=== PATIENT | female | born 1955 | race Caucasian/White ===

== ENCOUNTER 2018-06-19 04:04 | Inpatient (IN) | payer MEDICARE, OTHER ==
[~2018-06-19] VITALS: Ht 154.9 cm; Wt 133.4 kg
[~2018-06-19 04:04] MED LIST: AMLO10 PO; AMOCLA875 PO; ASPI81CH PO; ATOR10 PO; BUDE6HFA INH; DULO30 PO; FURO40 PO; HYDR1TAB94 PO; ISODIN20 PO; LOSA25 PO; METO25ER PO; ONDA4 PO; POTCHL10ER PO; TRAZ150T57; TUDORZA PRESS400 MCG IH; Ventolin Soln3 ML INH
[2018-06-19] MEDS ORDERED: DOXY100T53 PO (04:27)
[2018-06-19] MEDS ORDERED: MELO7.5 PO (04:28)
[2018-06-19 04:39] LABS: BASOPHILS ABSOLUTE AUTO 0.09 K/mm3 (0.00-0.23); BASOPHILS PERCENT AUTO 1 % (0-2); EOSINOPHILS ABSOLUTE AUTO 0.92 K/mm3 (0.00-0.68); EOSINOPHILS PERCENT AUTO 11 % (0-6); Hematocrit 41.6 % (33.0-51.0); Hemoglobin 13.3 g/dL (11.5-16.0); IMMATURE GRAN ABSOLUTE AUTO 0.04 K/mm3 (0.00-0.10); IMMATURE GRAN PERCENT AUTO 1 % (0-1); LYMPHOCYTES ABSOLUTE AUTO 1.92 K/mm3 (0.84-5.20); LYMPHOCYTES PERCENT AUTO 23 % (21-46); MONOCYTES ABSOLUTE AUTO 0.83 K/mm3 (0.16-1.47); MONOCYTES PERCENT AUTO 10 % (4-13); Mean Corpuscular HGB 29.9 pg (26.0-34.0); Mean Corpuscular Volume 94 fL (80-100); Mean Platelet Volume 9.8 fL (9.1-12.4); NEUTROPHILS ABSOLUTE AUTO 4.74 K/mm3 (1.96-9.15); NEUTROPHILS PERCENT AUTO 55 % (41-73); Platelet Count 256 K/mm3 (150-400); RDW Coefficient Variation 13.8 % (11.7-14.2); RDW Standard Deviation 47.4 fL (35.1-46.3); Red Blood Cell Count 4.45 M/mm3 (3.80-5.20); White Blood Cell Count 8.54 K/mm3 (4.00-11.30)
[2018-06-19 04:52] LABS: Alanine Aminotransfer (ALT/SGP 26 U/L (12-78); Albumin, Blood 3.7 g/dL (3.4-5.0); Albumin/Globulin Ratio 1.1 (0.8-1.8); Alk Phos 100 U/L (50-136); Anion Gap 7 mmol/L (6-16); Aspartate Aminotrans (AST/SGOT 32 U/L (12-37); Bilirubin, Total 0.6 mg/dL (0.1-1.0); Blood Urea Nitrogen 12 mg/dL (8-24); Bun/Creatinine Ratio 18.2 (12.0-20.0); CO2, Blood 26 mmol/L (21-32); Calcium, Blood 8.5 mg/dL (8.5-10.1); Chloride, Blood 108 mmol/L (98-108); Creatinine, Blood 0.66 mg/dL (0.40-1.00); Globulin, Blood 3.4 g/dL (2.2-4.0); Glomerular Filtration Rate >60 (60-); Glucose, Blood 114 mg/dL (70-99); Potassium, Blood 3.9 mmol/L (3.5-5.5); Sodium, Blood 141 mmol/L (136-145); Total Protein, Blood 7.1 g/dL (6.4-8.2); Troponin I <0.015 ng/mL (0.000-0.040)
--- NOTE | 2018-06-19 08:00 | NUR ---
ADMISSION SUMMARY RECEIVED PT FROM ER INTO ICU 15. PT ABLE TO AMBULATE FROM [facility] TO THE BED. DYSPNEIC ON EXERTION, SATS REMAINING 97-99% ON ROOM AIR. AUDIBLE WHEEZES THROUGHOUT ALL LUNG WALL. PLACED ON 2L O2 NC TO ASSIST WITH WORK OF BREATHING. RESPIRATORY THERAPY AT BEDSIDE TO PROVIDE A BREATHING TREATMENT AND INHALERS. SR - ST ON MONITOR, HR 90'S - 117, INCREASES WITH EXERTION AND DYSPNEA. COLLECTED PRESPIRATORY PANEL PCR AND SENT TO LAB. INSTRUCTED PT TO PROVIDE A SPUTUM SAMPLE AND PROVIDED CONTAINER AND EDUCATION. VOIDS PER BEDSIDE COMMODE. FREQUENT VOIDS WITH LARGE AMOUNTS OF URINE, RECEIVED DOSE OF LASIX. CALLS APPROPRIATELY FOR ASSISTANCE OOB. ORDERED A REGULAR DIET BUT PT NOT FEELING HUNGRY FOR BOTH BREAKFAST AND LUNCH. OBESE, DENIES GI UPSET. SKIN INTACT. LEFT AC SALINE LOCK, GAVE LEVAQUIN.
[2018-06-19] MEDS ORDERED: ALBU3IS INH (08:55)
[2018-06-19] MEDS ORDERED: DICLOFENAC SOD100 G1 TOP (09:02)
[2018-06-19 10:32] LABS: Adenovirus Not Detected (NOT DETECT); Bordetella pertussis Not Detected (NOT DETECT); Chlamydophila pneumoniae Not Detected (NOT DETECT); Coronavirus 229E Not Detected (NOT DETECT); Coronavirus HKU1 Not Detected (NOT DETECT); Coronavirus NL63 Not Detected (NOT DETECT); Coronavirus OC43 Not Detected (NOT DETECT); Human Metapneumovirus Not Detected (NOT DETECT); Human Rhinovirus/Enterovirus Detected (NOT DETECT); Influenza A Not Detected (NOT DETECT); Influenza A/2009-H1 Not Detected (NOT DETECT); Influenza A/H1 Not Detected (NOT DETECT); Influenza A/H3 Not Detected (NOT DETECT); Influenza B Not Detected (NOT DETECT); Mycoplasma pneumoniae Not Detected (NOT DETECT); Parainfluenza Virus 1 Not Detected (NOT DETECT); Parainfluenza Virus 2 Not Detected (NOT DETECT); Parainfluenza Virus 3 Not Detected (NOT DETECT); Parainfluenza Virus 4 Not Detected (NOT DETECT); Respiratory Syncytial Virus Not Detected (NOT DETECT)
--- NOTE | 2018-06-19 12:15 | NUR ---
DR. BEE AT BEDSIDE FOR EVALUATION. NEW ORDERS PROVIDED.
--- NOTE | 2018-06-19 18:26 | NUR ---
NURSING SUMMARY - MEDICAL NON-TEL STATUS ALERT AND ORIENTED X 4. SR - ST ON MONITOR, HR 80'S - 117, INCREASES WITH EXERTION AND DYSPNEA. LUNGS WITH WHEEZES THROUGHOUT, DRY NON-PRODUCTIVE COUGH, 2L O2 NC, SATS 96-100%. VOIDS PER BEDSIDE COMMODE, LARGE AMOUNTS OF URINE TODAY, GAVE LASIX. NO BM. TOLERATING A REGUALR DIET, DENIES N/V/D. CALLS APPROPRIATELY FOR ASSISTANCE. REPOSITIONS SELF IN BED. LEFT AC SALINE LOCK.
--- NOTE | 2018-06-19 19:15 | NUR ---
[place] of Care: Patient alert and oriented x4, sitting upright in bed watching tv. Denies dyspnea or SOB, VSS, O2- 95-96% on 2L/NC. C/o headache pain, 06/29, prn tylenol given. Independent in room transfers self to bedside commode without difficulty, non-skid footwear in place. Peripheral IV to LAC patent and intact, saline locked at this time. Call light in reach, makes needs known. Will continue to monitor for pain, safety, comfort.
[2018-06-20 03:36] LABS: Mean Corpuscular HGB 29.8 pg (26.0-34.0); Mean Corpuscular HGB Conc 32.5 g/dL (31.5-36.5); Mean Corpuscular Volume 92 fL (80-100); Mean Platelet Volume 9.8 fL (9.1-12.4); Platelet Count 257 K/mm3 (150-400); RDW Coefficient Variation 13.7 % (11.7-14.2); RDW Standard Deviation 46.7 fL (35.1-46.3); Red Blood Cell Count 4.36 M/mm3 (3.80-5.20); White Blood Cell Count 9.05 K/mm3 (4.00-11.30)
[2018-06-20 04:00] LABS: Alanine Aminotransfer (ALT/SGP 22 U/L (12-78); Albumin, Blood 3.3 g/dL (3.4-5.0); Alk Phos 90 U/L (50-136); Anion Gap 8 mmol/L (6-16); Aspartate Aminotrans (AST/SGOT 9 U/L (12-37); Bilirubin, Total 0.6 mg/dL (0.1-1.0); Blood Urea Nitrogen 14 mg/dL (8-24); Bun/Creatinine Ratio 21.7 (12.0-20.0); CO2, Blood 26 mmol/L (21-32); Calcium, Blood 8.5 mg/dL (8.5-10.1); Chloride, Blood 107 mmol/L (98-108); Creatinine, Blood 0.64 mg/dL (0.40-1.00); Globulin, Blood 3.3 g/dL (2.2-4.0); Glomerular Filtration Rate >60 (60-); Glucose, Blood 165 mg/dL (70-99); Potassium, Blood 3.5 mmol/L (3.5-5.5); Sodium, Blood 141 mmol/L (136-145); Total Protein, Blood 6.6 g/dL (6.4-8.2)
--- NOTE | 2018-06-20 06:08 | NUR ---
Shift Summary: Patient slept well throughout shift. Placed on home CPAP while sleeping. 2L O2 bleed-in added approx 0100hr as O2% decreased to 85-88%, VSS otherwise stable throughout shift. Continues to deny dyspnea or SOB. No further C/o pain following prn tylenol given early in shift for c/o headache. Peripheral IV remains patent and intact. Call light in reach, makes needs known. Will continue to monitor until report to day shift RN.
--- NOTE | 2018-06-20 07:20 | NUR ---
RECEIVED REPORT FROM PAT ARNETT, AND ASSUMED CARE OF PT.
--- NOTE | 2018-06-20 10:30 | NUR ---
DR. GILL AT BEDSIDE FOR EVALUATION. STATED HE WAS GOING TO DISCHARGE PT TODAY.
[2018-06-20] MEDS ORDERED: LEVO750 PO (14:50)
[2018-06-20] MEDS ORDERED: ACET325 PO (14:50)
[2018-06-20] MEDS ORDERED: ONDA4ODT MM (14:51)
[2018-06-20] MEDS ORDERED: PRED20 PO (14:51)
--- NOTE | 2018-06-20 15:09 | NUR ---
PROVIDED PT AND WITH DISCHARGE INSTRUCTIONS AND ANSWERED ALL QUESTIONS. FAXED PRESCRIPTIONS FOR [facility] ON [address] AND CONFIRMED FOLLOW-UP PCP APPOINTMENT WITH PT/ FOR 06/23/18 AT 10:00 WITH ANATOLY SHANE. REMOVED LEFT AC IV INTACT, TOLERATED WELL, NO BLEEDING AT THE SITE. PATIENT ESCORTED OUT VIA WHEELCHAIR BY YOVANI CALERO.
== END 2018-06-20 15:00 | disposition home or self-care (01) | DRG 193 ==
LOC: ER 04:04 → ICUW 05:56 → ERHOLD 05:56 → ICUW 07:49 → EDBEDREQ 07:54 → EDBEDREQSVC 07:54 → ICUW 08:00
PROVIDERS: Emergency Medicine; ADMIT Internal Medicine
PROC: 5A09357 Assistance with Respiratory Ventilation, Less than 24 Consecutive Hours, Continuous Positive Airway Pressure (ICD-10-PCS; principal; 2018-06-19)
DX: J12.9 Viral pneumonia, unspecified (principal); J96.21 Acute and chronic respiratory failure with hypoxia; J44.1 Chronic obstructive pulmonary disease with (acute) exacerbation; Z68.43 Body mass index [BMI] 50.0-59.9, adult; J44.0 Chronic obstructive pulmonary disease with (acute) lower respiratory infection; Z87.891 Personal history of nicotine dependence; I10 Essential (primary) hypertension; E66.01 Morbid (severe) obesity due to excess calories
CPT/HCPCS: 36415; 71045; 80053; 84484; 85025; 85027; 87486; 87581; 87633; 87798; 90686; 93005; 93010; 94640; 94644; 96361; 96374; 96375; 99285-25; J0696; J1650; J1940; J1956; J2930; J7030

== ENCOUNTER 2018-08-31 19:17 | Emergency (ER) | payer MEDICARE, OTHER ==
[~2018-08-31] VITALS: Ht 154.9 cm; Wt 136.1 kg
[~2018-08-31 19:17] MED LIST changes: +ACET325 PO; +ALBU3IS INH; +DICLOFENAC SOD100 G1 TOP; +DOXY100T53 PO; +LEVO750 PO; +MELO7.5 PO; +ONDA4ODT MM; +PRED20 PO
[2018-08-31 20:07] LABS: BASOPHILS PERCENT AUTO 1 % (0-2); EOSINOPHILS PERCENT AUTO 9 % (0-6); Hematocrit 41.8 % (33.0-51.0); Hemoglobin 13.7 g/dL (11.5-16.0); IMMATURE GRAN ABSOLUTE AUTO 0.05 K/mm3 (0.00-0.10); IMMATURE GRAN PERCENT AUTO 1 % (0-1); LYMPHOCYTES ABSOLUTE AUTO 2.15 K/mm3 (0.84-5.20); LYMPHOCYTES PERCENT AUTO 26 % (21-46); MONOCYTES ABSOLUTE AUTO 0.65 K/mm3 (0.16-1.47); MONOCYTES PERCENT AUTO 8 % (4-13); Mean Corpuscular HGB 29.1 pg (26.0-34.0); Mean Corpuscular HGB Conc 32.8 g/dL (31.5-36.5); Mean Corpuscular Volume 89 fL (80-100); Mean Platelet Volume 10.5 fL (9.1-12.4); NEUTROPHILS ABSOLUTE AUTO 4.52 K/mm3 (1.96-9.15); NEUTROPHILS PERCENT AUTO 55 % (41-73); Platelet Count 279 K/mm3 (150-400); RDW Coefficient Variation 13.9 % (11.7-14.2); RDW Standard Deviation 45.1 fL (35.1-46.3); White Blood Cell Count 8.17 K/mm3 (4.00-11.30)
[2018-08-31 21:17] LABS: Alanine Aminotransfer (ALT/SGP 31 U/L (12-78); Albumin, Blood 3.8 g/dL (3.4-5.0); Albumin/Globulin Ratio 1.1 (0.8-1.8); Alk Phos 95 U/L (50-136); Anion Gap 5 mmol/L (6-16); Aspartate Aminotrans (AST/SGOT 18 U/L (12-37); Bilirubin, Total 0.6 mg/dL (0.1-1.0); Blood Urea Nitrogen 7 mg/dL (8-24); Bun/Creatinine Ratio 9.4 (12.0-20.0); CO2, Blood 28 mmol/L (21-32); Calcium, Blood 8.9 mg/dL (8.5-10.1); Chloride, Blood 110 mmol/L (98-108); Creatinine, Blood 0.74 mg/dL (0.40-1.00); Globulin, Blood 3.5 g/dL (2.2-4.0); Glomerular Filtration Rate >60 (60-); Glucose, Blood 103 mg/dL (70-99); Potassium, Blood 3.8 mmol/L (3.5-5.5); Sodium, Blood 143 mmol/L (136-145); Total Protein, Blood 7.3 g/dL (6.4-8.2); Troponin I <0.015 ng/mL (0.000-0.040)
[2018-08-31] MEDS ORDERED: Prednisone50 MG PO (22:46)
[2018-08-31] MEDS ORDERED: Zithromax250 MG PO (22:46)
== END 2018-08-31 23:50 | disposition home or self-care (01) ==
LOC: ER 19:17
PROVIDERS: Emergency Medicine
DX: J44.1 Chronic obstructive pulmonary disease with (acute) exacerbation (principal); F41.9 Anxiety disorder, unspecified; I10 Essential (primary) hypertension; F32.9 Major depressive disorder, single episode, unspecified; Z87.891 Personal history of nicotine dependence; Z79.899 Other long term (current) drug therapy
CPT/HCPCS: 36415; 71046; 80053; 83880; 84484; 85025; 93005; 93010; 94640; 96374; 99284-25; J1100

== ENCOUNTER 2018-10-21 19:29 | Emergency (ER) | payer MEDICARE, OTHER ==
[~2018-10-21] VITALS: Ht 154.9 cm; Wt 136.1 kg
[~2018-10-21 19:29] MED LIST changes: +Prednisone50 MG PO; +Zithromax250 MG PO
== END 2018-10-21 20:24 | disposition home or self-care (01) ==
LOC: ER 19:29
DX: R09.89 Other specified symptoms and signs involving the circulatory and respiratory systems (principal); F41.0 Panic disorder [episodic paroxysmal anxiety]; Z88.5 Allergy status to narcotic agent; Z79.899 Other long term (current) drug therapy
CPT/HCPCS: 71046; 99283-25

== ENCOUNTER → 2018-12-19 | Outpatient (CLI) | payer MEDICARE, OTHER | END | disposition home or self-care (01) | LOC: LAB SHORT 11:42 → OLS 11:42 | DX: J44.9 Chronic obstructive pulmonary disease, unspecified (principal) | CPT/HCPCS: 87070; 87205 ==

== ENCOUNTER 2019-05-11 07:22 | Emergency (ER) | payer MEDICARE, OTHER ==
[~2019-05-11] VITALS: Ht 154.9 cm; Wt 136.1 kg
[2019-05-11 08:05] LABS: BASOPHILS ABSOLUTE AUTO 0.08 K/mm3 (0.00-0.23); BASOPHILS PERCENT AUTO 1 % (0-2); EOSINOPHILS PERCENT AUTO 8 % (0-6); Hematocrit 41.1 % (33.0-51.0); Hemoglobin 13.3 g/dL (11.5-16.0); IMMATURE GRAN ABSOLUTE AUTO 0.03 K/mm3 (0.00-0.10); IMMATURE GRAN PERCENT AUTO 0 % (0-1); LYMPHOCYTES ABSOLUTE AUTO 1.69 K/mm3 (0.84-5.20); LYMPHOCYTES PERCENT AUTO 16 % (21-46); MONOCYTES ABSOLUTE AUTO 0.75 K/mm3 (0.16-1.47); MONOCYTES PERCENT AUTO 7 % (4-13); Mean Corpuscular HGB Conc 32.4 g/dL (31.5-36.5); Mean Corpuscular Volume 90 fL (80-100); NEUTROPHILS ABSOLUTE AUTO 7.23 K/mm3 (1.96-9.15); NEUTROPHILS PERCENT AUTO 68 % (41-73); Platelet Count 239 K/mm3 (150-400); RDW Coefficient Variation 14.4 % (11.7-14.2); RDW Standard Deviation 47.1 fL (35.1-46.3); Red Blood Cell Count 4.58 M/mm3 (3.80-5.20); White Blood Cell Count 10.58 K/mm3 (4.00-11.30)
[2019-05-11 08:30] LABS: Influenza A Negative (NEGATIVE); Influenza B Negative (NEGATIVE)
[2019-05-11 08:52] LABS: Alanine Aminotransfer (ALT/SGP 21 U/L (12-78); Albumin, Blood 3.2 g/dL (3.4-5.0); Albumin/Globulin Ratio 0.9 (0.8-1.8); Alk Phos 101 U/L (50-136); Anion Gap 6 mmol/L (6-16); Aspartate Aminotrans (AST/SGOT 11 U/L (12-37); Bilirubin, Total 0.5 mg/dL (0.1-1.0); Blood Urea Nitrogen 12 mg/dL (8-24); Bun/Creatinine Ratio 17.1 (12.0-20.0); CO2, Blood 26 mmol/L (21-32); Calcium, Blood 8.3 mg/dL (8.5-10.1); Chloride, Blood 109 mmol/L (98-108); Globulin, Blood 3.6 g/dL (2.2-4.0); Glomerular Filtration Rate >60 (60-); Glucose, Blood 108 mg/dL (70-99); Sodium, Blood 141 mmol/L (136-145); Total Protein, Blood 6.8 g/dL (6.4-8.2); Troponin I <0.015 ng/mL (0.000-0.040)
[2019-05-11] MEDS ORDERED: Zithromax250 MG PO (09:18)
[2019-05-11] MEDS ORDERED: Prednisone20 MG PO (09:18)
== END 2019-05-11 09:47 | disposition home or self-care (01) ==
LOC: ER 07:22
PROVIDERS: Emergency Medicine
DX: J44.1 Chronic obstructive pulmonary disease with (acute) exacerbation (principal); F41.9 Anxiety disorder, unspecified; I10 Essential (primary) hypertension; Z87.891 Personal history of nicotine dependence; Z79.899 Other long term (current) drug therapy
CPT/HCPCS: 71046; 80053; 83880; 84484; 85025; 87804; 93005; 93010; 94640; 99285-25; J7512

== ENCOUNTER 2019-07-14 15:10 | Emergency (ER) | payer MEDICARE, OTHER ==
[~2019-07-14] VITALS: Ht 154.9 cm; Wt 136.1 kg
[~2019-07-14 15:10] MED LIST changes: +Prednisone20 MG PO
[2019-07-14 17:01] LABS: BASOPHILS ABSOLUTE AUTO 0.13 K/mm3 (0.00-0.23); BASOPHILS PERCENT AUTO 1 % (0-2); EOSINOPHILS ABSOLUTE AUTO 1.05 K/mm3 (0.00-0.68); EOSINOPHILS PERCENT AUTO 11 % (0-6); Hematocrit 42.3 % (33.0-51.0); Hemoglobin 13.5 g/dL (11.5-16.0); IMMATURE GRAN ABSOLUTE AUTO 0.02 K/mm3 (0.00-0.10); IMMATURE GRAN PERCENT AUTO 0 % (0-1); LYMPHOCYTES ABSOLUTE AUTO 2.48 K/mm3 (0.84-5.20); LYMPHOCYTES PERCENT AUTO 27 % (21-46); MONOCYTES ABSOLUTE AUTO 0.79 K/mm3 (0.16-1.47); MONOCYTES PERCENT AUTO 8 % (4-13); Mean Corpuscular HGB 29.2 pg (26.0-34.0); Mean Corpuscular HGB Conc 31.9 g/dL (31.5-36.5); Mean Corpuscular Volume 92 fL (80-100); Mean Platelet Volume 9.6 fL (9.1-12.4); NEUTROPHILS PERCENT AUTO 52 % (41-73); Platelet Count 267 K/mm3 (150-400); RDW Coefficient Variation 13.7 % (11.7-14.2); RDW Standard Deviation 46.4 fL (35.1-46.3); Red Blood Cell Count 4.62 M/mm3 (3.80-5.20); White Blood Cell Count 9.37 K/mm3 (4.00-11.30)
[2019-07-14 17:02] LABS: PCO2 Arterial 41.6 mmHg (35-45); pH Blood Arterial 7.43 (7.35-7.45)
[2019-07-14 17:21] LABS: Alanine Aminotransfer (ALT/SGP 21 U/L (12-78); Albumin, Blood 3.4 g/dL (3.4-5.0); Alk Phos 88 U/L (50-136); Anion Gap 5 mmol/L (6-16); Aspartate Aminotrans (AST/SGOT 14 U/L (12-37); Bilirubin, Total 0.5 mg/dL (0.1-1.0); Blood Urea Nitrogen 18 mg/dL (8-24); Bun/Creatinine Ratio 24.9 (12.0-20.0); CO2, Blood 28 mmol/L (21-32); Calcium, Blood 8.5 mg/dL (8.5-10.1); Chloride, Blood 107 mmol/L (98-108); Creatinine, Blood 0.72 mg/dL (0.40-1.00); Globulin, Blood 3.5 g/dL (2.2-4.0); Glomerular Filtration Rate >60 (60-); Glucose, Blood 84 mg/dL (70-99); Potassium, Blood 4.2 mmol/L (3.5-5.5); Sodium, Blood 140 mmol/L (136-145); Total Protein, Blood 6.9 g/dL (6.4-8.2)
[2019-07-14] MEDS ORDERED: PRED10 PO (17:31)
== END 2019-07-14 18:45 | disposition home or self-care (01) ==
LOC: ER 15:10
PROVIDERS: Emergency Medicine
DX: J44.1 Chronic obstructive pulmonary disease with (acute) exacerbation (principal); F41.9 Anxiety disorder, unspecified; I10 Essential (primary) hypertension; G47.33 Obstructive sleep apnea (adult) (pediatric); Z87.891 Personal history of nicotine dependence; Z79.899 Other long term (current) drug therapy; Z79.51 Long term (current) use of inhaled steroids
CPT/HCPCS: 36415; 36600; 71045; 80053; 82803; 85025; 93005; 93010; 94644; 96374; 99285-25; J2930

== ENCOUNTER 2019-08-19 01:56 | Inpatient (IN) | payer MEDICARE, OTHER ==
[~2019-08-19] VITALS: Ht 154.9 cm; Wt 136.3 kg
[~2019-08-19 01:56] MED LIST changes: +PRED10 PO
[2019-08-19 02:34] LABS: BASOPHILS ABSOLUTE AUTO 0.09 K/mm3 (0.00-0.23); BASOPHILS PERCENT AUTO 1 % (0-2); EOSINOPHILS ABSOLUTE AUTO 0.64 K/mm3 (0.00-0.68); EOSINOPHILS PERCENT AUTO 7 % (0-6); Hematocrit 37.4 % (33.0-51.0); IMMATURE GRAN ABSOLUTE AUTO 0.05 K/mm3 (0.00-0.10); IMMATURE GRAN PERCENT AUTO 1 % (0-1); LYMPHOCYTES ABSOLUTE AUTO 1.98 K/mm3 (0.84-5.20); LYMPHOCYTES PERCENT AUTO 21 % (21-46); MONOCYTES ABSOLUTE AUTO 0.79 K/mm3 (0.16-1.47); MONOCYTES PERCENT AUTO 9 % (4-13); Mean Corpuscular HGB 28.8 pg (26.0-34.0); Mean Corpuscular HGB Conc 32.1 g/dL (31.5-36.5); Mean Corpuscular Volume 90 fL (80-100); Mean Platelet Volume 9.4 fL (9.1-12.4); NEUTROPHILS ABSOLUTE AUTO 5.69 K/mm3 (1.96-9.15); NEUTROPHILS PERCENT AUTO 62 % (41-73); Platelet Count 348 K/mm3 (150-400); RDW Coefficient Variation 13.2 % (11.7-14.2); RDW Standard Deviation 43.2 fL (35.1-46.3); Red Blood Cell Count 4.17 M/mm3 (3.80-5.20); White Blood Cell Count 9.24 K/mm3 (4.00-11.30)
[2019-08-19 02:54] LABS: Alanine Aminotransfer (ALT/SGP 19 U/L (12-78); Albumin/Globulin Ratio 0.8 (0.8-1.8); Alk Phos 91 U/L (50-136); Anion Gap 10 mmol/L (6-16); Aspartate Aminotrans (AST/SGOT 12 U/L (12-37); Bilirubin, Total 0.4 mg/dL (0.1-1.0); Blood Urea Nitrogen 10 mg/dL (8-24); Bun/Creatinine Ratio 14.6 (12.0-20.0); CO2, Blood 23 mmol/L (21-32); Calcium, Blood 8.1 mg/dL (8.5-10.1); Chloride, Blood 108 mmol/L (98-108); Creatinine, Blood 0.68 mg/dL (0.40-1.00); Glomerular Filtration Rate >60 (60-); Glucose, Blood 141 mg/dL (70-99); Potassium, Blood 3.9 mmol/L (3.5-5.5); Sodium, Blood 141 mmol/L (136-145); Troponin I <0.015 ng/mL (0.000-0.040)
[2019-08-19] MEDS ORDERED: NAPR220 PO (05:20)
--- NOTE | 2019-08-19 07:53 | NUR ---
ADMIT NOTE/SHIFT SUMMARY PATIENT ADMITTED FROM THE ER THIS MORNING. PATIENT ABLE TO STAND AND TRANSFER SELF FROM THE GURNEY TO THE BED. PATIENT ON 2L WHEN OFF BIPAP. PATIENT GETS SHORT OF BREATH EASILY WHEN OFF BIPAP AT THIS TIME. PATIENT ORIENTED TO THE ROOM, UNIT, AND CALL LIGHT. PATIENT APPEARED TO SLEEP WELL THROUGHOUT THE REST OF THE SHIFT WEARING THE BIPAP. CONTINUOUS BIOX IN PLACE. REPORT GIVEN TO ONCKEVIN RN.
--- NOTE | 2019-08-19 10:45 | NUR ---
PT OOB TO BSC: PT VERY FEARFUL OF HER RESPIRATORY STATUS DECLINING. PT TAKEN OFF BIPAP AND PLACE ON 3L 02 VIA N/C AND NO RESP DISTRESS SEEN. PT DID WELL WITH SIPS OF WATER (NO COUGHING/CHOKING/SPUTTERING) SEEN, GIVEN MEDS WITH NO RESP DISTRESS. PT DID BECOME SOMEWHAT DYSPNEIC WHEN GETTING OOB TO BSC, HOWEVER, SATS REMAINS LOW 90% RANGE DURING THIS TIME. PT RECOVERED WITHIN 5 MINUTES.
--- NOTE | 2019-08-19 13:49 | NUR ---
CALLED AND LEFT MESSAGE WITH ANSWERING SERVICE FOR ORTHO CONSULT PER DR VIDES FOR POSSIBLE TORN LIGAMENT ON XRAY. CONSULT PENDING.
--- NOTE | 2019-08-19 14:34 | NUR ---
CPAP BROUGHT IN TO PT AND PLACED AT THE BEDSIDE. WILL CONTACT RT TO CHECK AND SET UP.
--- NOTE | 2019-08-19 16:45 | NUR ---
PT UPDATE: PT FOUND SLEEPING UPON THIS RN'S ARRIVAL. AWAKENS EASILY. PT MEDICATED WITH SOLU-MEDROL AND ASSESS ANY FURTHER PT NEEDS AT THIS TIME.
--- NOTE | 2019-08-19 18:24 | NUR ---
SHIFT SUMMARY: PT IS ALERT AND ORIENTED X3. PLEASANT AND COOPERATIVE WITH CARE. PT SPEECH IS SOMEWHAT GARBLED AND DIFFICULT TO UNDERSTAND AT TIMES. PT ABLE TO GET OOB WITH 1 PERSON ASSIST TO BSC W/ USE OF FWW. PT DENIES ANY PAIN T/O SHIFT. REMAINS SLEEPTY T/O SHIFT AND REPORTS SHE "HASN'T BEEN SLEEPING WELL." LUNGS ARE CLEAR IN THE UPPER LOBES BUT DIMINISHED IN THE BILATERAL BASES. PT HAS DONE WELL OFF OF BIPAP TODAY AND NO PERIODS OF RESPIRATORY DISTRESS NOTED T/O SHIFT. ABD SOFT/ROUND/NON-TENDER. PT WITH LITTLE/NO APPETITE T/O SHIFT. PT GETS OOB TO USE BSC TO VOID.
--- NOTE | 2019-08-20 06:41 | NUR ---
SHIFT SUMMARY PATIENT PLEASENT AND COOPERATIVE THROUGHOUT THE NIGHT. PATIENT APPEARED TO SLEEP WELL THROUGHOUT THE NIGHT USING HER HOME CPAP WITH A 3L O2 BLEED IN. CONTINUOUS BIOX IN PLACE. PATIENT CURRENTLY APPEARS TO BE ASLEEP AND RESTING WELL. WILL CONTINUE TO MONITOR PATIENT AND REPORT TO ONCOMING RN.
--- NOTE | 2019-08-20 06:55 | NUR ---
ORTHO CONSULT ORTHO CONSULT QUESTIONED DUE TO LACK OF ANKLE XRAY AND PATIENT DENYING ANY ANKLE DISCOMFORT. DR VIDES NOTIFIED WHO WILL REVEIW.
--- NOTE | 2019-08-20 16:17 | NUR ---
UPDATE PT ALERT AND ORIENTED. VS STABLE. O2 SATS REMAIN ABOVE 90% ON 3L NC. PT USES CPAP AT NIGHT WITH 3L BLEED. PT UP INDEPENDENTLY TO BSC NEEDED TO VOID. ORDERS CHANGED TO MEDICAL STATUS. REPORT GIVEN TO MEDICAL FLOOR RN. PT TO BE TAKEN UP BY BED.
--- NOTE | 2019-08-20 17:31 | NUR ---
[facility] PT IS AOX4 AND COOPERATIVE OF CARE. PT IS COMFORTABLE IN BED WITH NO SOB RESTING. PT DENIES PAIN AT THIS TIME AND CAN CALL APPROPRIATELY. BED IN LOWEST POSITION WITH CALL LIGHT WITHIN REACH. WILL CONTINUE TO MONITOR.
--- NOTE | 2019-08-21 05:33 | NUR ---
CONTROL ROOM HELPER SUMMARY AO AND USES CALL LIGHT APPROPRIATELY. APPEARED TO SLEEP WELL T/O NIGHT. NO S/S OF DISTRESS. DENIES PAIN OR SOB. COMPLIANT WITH CPAP. INDEPENDENT TO BSC. PT IS VERY PLEASANT AND COOPERATIVE WITH CARE. BED IN LOWEST POSITION WITH CALL LIGHT IN REACH. WILL CONTINUE TO MONITOR, REPORT TO BE GIVEN TO ONCOMING NURSE.
[2019-08-21] MEDS ORDERED: PRED20 PO (12:48)
--- NOTE | 2019-08-21 13:11 | NUR ---
PT DCD HOME WITH . ALL INSTRUCTIONS REVIEWED WITH PT WHO VERBALIZED AN UNDERSTANDING AND STATED SHE WOULD PREFER TO SCHEDULE HER OWN FOLLOW UP APPT. MED REC WAS FAXED TO PHARMACY ON FILE. PT HAS NO IV ACCESS. ALL PERSONAL BELONGINGS SENT WITH THE PT. HER IS HERE TO PICK HER UP.
== END 2019-08-21 13:10 | disposition home health service (06) | DRG 189 ==
LOC: ER 01:56 → PCU 04:44 → MEDS 04:44 → PCU 04:53 → MEDS 08-20 17:00
PROVIDERS: Emergency Medicine; ADMIT Internal Medicine
PROC: 5A09357 Assistance with Respiratory Ventilation, Less than 24 Consecutive Hours, Continuous Positive Airway Pressure (ICD-10-PCS; principal; 2019-08-19)
DX: J96.21 Acute and chronic respiratory failure with hypoxia (principal); J44.1 Chronic obstructive pulmonary disease with (acute) exacerbation; Z68.43 Body mass index [BMI] 50.0-59.9, adult; J96.22 Acute and chronic respiratory failure with hypercapnia; I10 Essential (primary) hypertension; E66.01 Morbid (severe) obesity due to excess calories; F32.9 Major depressive disorder, single episode, unspecified; G47.33 Obstructive sleep apnea (adult) (pediatric); Z98.891 History of uterine scar from previous surgery; Z79.52 Long term (current) use of systemic steroids; Z87.891 Personal history of nicotine dependence
CPT/HCPCS: 36415; 71045; 80053; 83880; 84484; 85025; 93005; 93010; 94640; 94644; 94660; 94762; 96374; 99285-25; A9270; J0360; J1650; J2930; J7512

== ENCOUNTER 2020-02-16 18:10 | Emergency (ER) | payer MEDICARE, OTHER ==
[~2020-02-16] VITALS: Ht 154.9 cm; Wt 136.1 kg
[~2020-02-16 18:10] MED LIST changes: +NAPR220 PO
[2020-02-16 18:52] LABS: BASOPHILS ABSOLUTE AUTO 0.11 K/mm3 (0.00-0.23); BASOPHILS PERCENT AUTO 1 % (0-2); EOSINOPHILS ABSOLUTE AUTO 0.73 K/mm3 (0.00-0.68); EOSINOPHILS PERCENT AUTO 7 % (0-6); Hematocrit 42.7 % (33.0-51.0); Hemoglobin 13.8 g/dL (11.5-16.0); IMMATURE GRAN ABSOLUTE AUTO 0.04 K/mm3 (0.00-0.10); IMMATURE GRAN PERCENT AUTO 0 % (0-1); LYMPHOCYTES ABSOLUTE AUTO 3.07 K/mm3 (0.84-5.20); LYMPHOCYTES PERCENT AUTO 27 % (21-46); MONOCYTES ABSOLUTE AUTO 0.77 K/mm3 (0.16-1.47); MONOCYTES PERCENT AUTO 7 % (4-13); Mean Corpuscular HGB 28.7 pg (26.0-34.0); Mean Corpuscular HGB Conc 32.3 g/dL (31.5-36.5); Mean Corpuscular Volume 89 fL (80-100); Mean Platelet Volume 9.9 fL (9.1-12.4); NEUTROPHILS ABSOLUTE AUTO 6.49 K/mm3 (1.96-9.15); NEUTROPHILS PERCENT AUTO 58 % (41-73); Platelet Count 321 K/mm3 (150-400); RDW Coefficient Variation 14.1 % (11.7-14.2); RDW Standard Deviation 45.5 fL (35.1-46.3); Red Blood Cell Count 4.81 M/mm3 (3.80-5.20); White Blood Cell Count 11.21 K/mm3 (4.00-11.30)
[2020-02-16 19:12] LABS: Alanine Aminotransfer (ALT/SGP 29 U/L (12-78); Albumin, Blood 3.8 g/dL (3.4-5.0); Albumin/Globulin Ratio 1.1 (0.8-1.8); Alk Phos 92 U/L (50-136); Anion Gap 10 mmol/L (6-16); Aspartate Aminotrans (AST/SGOT 21 U/L (12-37); Bilirubin, Total 0.5 mg/dL (0.1-1.0); Blood Urea Nitrogen 10 mg/dL (8-24); Bun/Creatinine Ratio 8.7 (12.0-20.0); CO2, Blood 30 mmol/L (21-32); Chloride, Blood 105 mmol/L (98-108); Creatinine, Blood 1.15 mg/dL (0.40-1.00); Globulin, Blood 3.6 g/dL (2.2-4.0); Glomerular Filtration Rate 50 (60-); Glucose, Blood 102 mg/dL (70-99); Potassium, Blood 3.2 mmol/L (3.5-5.5); Sodium, Blood 145 mmol/L (136-145); Total Protein, Blood 7.4 g/dL (6.4-8.2); Troponin I <0.015 ng/mL (0.000-0.040)
[2020-02-16] MEDS ORDERED: HYDCHL25 PO (21:25)
[2020-02-16] MEDS ORDERED: REMERON30 MG PO (21:25)
[2020-02-16 23:36] LABS: Influenza A, PCR Negative (NEGATIVE); Influenza B, PCR Negative (NEGATIVE); Resp Syncytial Virus, PCR Negative (NEGATIVE); SARS-Cov-2 (COVID-19) PCR, MMC Negative (NEGATIVE)
== END 2020-02-17 01:20 | disposition home or self-care (01) ==
LOC: ER 18:10
PROVIDERS: Emergency Medicine; Student in an Organized Health Care Education/Training Program
DX: R06.00 Dyspnea, unspecified (principal); R60.0 Localized edema; K11.5 Sialolithiasis; I10 Essential (primary) hypertension; J44.9 Chronic obstructive pulmonary disease, unspecified; F41.9 Anxiety disorder, unspecified; Z88.5 Allergy status to narcotic agent; Z88.8 Allergy status to other drugs, medicaments and biological substances
CPT/HCPCS: 0241U; 36415; 71046; 80053; 83690; 83880; 84484; 85025; 93005; 93010; 93970; 99285-25

== ENCOUNTER 2020-03-17 17:33 | Inpatient (IN) | payer MEDICARE, OTHER ==
[~2020-03-17] VITALS: Ht 154.9 cm; Wt 145.0 kg
[~2020-03-17 17:33] MED LIST changes: -ALBU3IS INH; -AMLO10 PO; -BUDE6HFA INH; -DULO30 PO; -MELO7.5 PO; -TRAZ150T57; -TUDORZA PRESS400 MCG IH
[2020-03-17 18:04] LABS: BASOPHILS PERCENT AUTO 1 % (0-2); EOSINOPHILS ABSOLUTE AUTO 0.31 K/mm3 (0.00-0.68); EOSINOPHILS PERCENT AUTO 3 % (0-6); Hemoglobin 12.9 g/dL (11.5-16.0); IMMATURE GRAN ABSOLUTE AUTO 0.06 K/mm3 (0.00-0.10); IMMATURE GRAN PERCENT AUTO 1 % (0-1); LYMPHOCYTES ABSOLUTE AUTO 1.68 K/mm3 (0.84-5.20); LYMPHOCYTES PERCENT AUTO 18 % (21-46); MONOCYTES PERCENT AUTO 3 % (4-13); Mean Corpuscular HGB 28.7 pg (26.0-34.0); Mean Corpuscular HGB Conc 32.3 g/dL (31.5-36.5); Mean Corpuscular Volume 89 fL (80-100); Mean Platelet Volume 9.9 fL (9.1-12.4); NEUTROPHILS ABSOLUTE AUTO 6.92 K/mm3 (1.96-9.15); NEUTROPHILS PERCENT AUTO 74 % (41-73); Platelet Count 265 K/mm3 (150-400); RDW Coefficient Variation 14.4 % (11.7-14.2); RDW Standard Deviation 47.8 fL (35.1-46.3); Red Blood Cell Count 4.49 M/mm3 (3.80-5.20); White Blood Cell Count 9.37 K/mm3 (4.00-11.30)
[2020-03-17 18:25] LABS: Alanine Aminotransfer (ALT/SGP 27 U/L (12-78); Albumin, Blood 3.3 g/dL (3.4-5.0); Albumin/Globulin Ratio 0.9 (0.8-1.8); Alk Phos 88 U/L (50-136); Anion Gap 10 mmol/L (6-16); Aspartate Aminotrans (AST/SGOT 17 U/L (12-37); Bilirubin, Total 0.5 mg/dL (0.1-1.0); Blood Urea Nitrogen 7 mg/dL (8-24); Bun/Creatinine Ratio 10.2 (12.0-20.0); CO2, Blood 24 mmol/L (21-32); Calcium, Blood 9.1 mg/dL (8.5-10.1); Chloride, Blood 106 mmol/L (98-108); Creatinine, Blood 0.69 mg/dL (0.40-1.00); Globulin, Blood 3.6 g/dL (2.2-4.0); Glomerular Filtration Rate >60 (60-); Glucose, Blood 141 mg/dL (70-99); Potassium, Blood 3.5 mmol/L (3.5-5.5); Sodium, Blood 140 mmol/L (136-145); Total Protein, Blood 6.9 g/dL (6.4-8.2); Troponin I <0.015 ng/mL (0.000-0.040)
[2020-03-17 19:55] LABS: Influenza A, PCR Negative (NEGATIVE); Influenza B, PCR Negative (NEGATIVE); Resp Syncytial Virus, PCR Negative (NEGATIVE); SARS-Cov-2 (COVID-19) PCR, MMC Negative (NEGATIVE)
[2020-03-17] MEDS ORDERED: LISI5 PO (20:09)
[2020-03-17] MEDS ORDERED: HYDCHL25 PO (20:09)
[2020-03-17] MEDS ORDERED: FLUTICASONE PRO16 GM (20:10)
[2020-03-17] MEDS ORDERED: REMERON30 MG PO (20:11)
[2020-03-17] MEDS ORDERED: ALBU90OI INH (20:12)
[2020-03-17] MEDS ORDERED: DULO60 PO (20:12)
[2020-03-17] MEDS ORDERED: AMLO10 PO (20:13)
[2020-03-17] MEDS ORDERED: MOBIC15 MG PO (20:13)
[2020-03-17] MEDS ORDERED: TRAZ150T57 PO (20:39)
[2020-03-17] MEDS ORDERED: TUDORZA PRESS400 MC1 INH (20:41)
[2020-03-17] MEDS ORDERED: SYMBICORT 160-4.6 GM INH (20:41)
[2020-03-17] MEDS ORDERED: IPRAT-ALBUT 0.5-3 ML NEB (20:42)
[2020-03-17 20:57] LABS: PCO2 Arterial 41.7 mmHg (35-45); PO2 Arterial 106 mmHg (80-100); pH Blood Arterial 7.44 (7.35-7.45)
[2020-03-17] MEDS ORDERED: ERYT.5TO BOTHEYES (21:02)
[2020-03-18 01:53] LABS: Hematocrit 38.5 % (33.0-51.0); Hemoglobin 12.4 g/dL (11.5-16.0); Mean Corpuscular HGB 28.5 pg (26.0-34.0); Mean Corpuscular HGB Conc 32.2 g/dL (31.5-36.5); Mean Corpuscular Volume 89 fL (80-100); Mean Platelet Volume 9.9 fL (9.1-12.4); Platelet Count 239 K/mm3 (150-400); RDW Coefficient Variation 14.4 % (11.7-14.2); RDW Standard Deviation 46.5 fL (35.1-46.3); Red Blood Cell Count 4.35 M/mm3 (3.80-5.20)
[2020-03-18 02:11] LABS: Anion Gap 6 mmol/L (6-16); Blood Urea Nitrogen 11 mg/dL (8-24); Bun/Creatinine Ratio 18.2 (12.0-20.0); CO2, Blood 28 mmol/L (21-32); Calcium, Blood 8.9 mg/dL (8.5-10.1); Chloride, Blood 108 mmol/L (98-108); Glomerular Filtration Rate >60 (60-); Glucose, Blood 211 mg/dL (70-99); Potassium, Blood 3.7 mmol/L (3.5-5.5); Sodium, Blood 142 mmol/L (136-145)
--- NOTE | 2020-03-18 07:44 | NUR ---
03/18/20 0600 PT SLEPT WELL ON CPAP MACHINE APPLIED BY RT. VITALS STABLE. ON-CALL MD NOTIFIED OF HIGH LACTIC ACID RESULTS AND IV FLUIDS ORDERED. O2 REMAINS AT 2LPM VIA N/C. HEART MONITOR STABLE AT SR IN THE 80'S. IV ANTIBIOTICS GIVEN ORDERED.
[2020-03-18] MEDS ORDERED: AZITHROMYCIN500 M1 PO (16:07)
[2020-03-18] MEDS ORDERED: PRED20 PO (16:08)
--- NOTE | 2020-03-18 17:07 | NUR ---
DISCHARGE SUMMARY PT AxOx4. PLEASANT AND COOPERATIVE WITH CARE TODAY. IN THE ROOM. VITALS REVIEWED. PT AMBULATING INDEPENDENTLY. INTERMITTENT SOB WITH EXERTION. PT STATES THIS IS HER BASELINE. DISCHARGE INSTRUCTIONS DISCUSSED INCLUDING NEW MEDICATIONS, PT EDUCATION AND FOLLOW UP APPOINTMENTS. PT VERBALIZES UNDERSTANDING. PT DENIES ANY FURTHER NEEDS OR QUESTIONS AT THIS TIME. SAFELY DISCHARGED VIA WC BY ANGELA PINA AND PT .
== END 2020-03-18 17:11 | disposition home health service (06) | DRG 193 ==
LOC: ER 17:33 → MEDS 21:48
PROVIDERS: Emergency Medicine; ADMIT Internal Medicine
PROC: 5A09357 Assistance with Respiratory Ventilation, Less than 24 Consecutive Hours, Continuous Positive Airway Pressure (ICD-10-PCS; principal; 2020-03-17)
DX: J18.0 Bronchopneumonia, unspecified organism (principal); J96.21 Acute and chronic respiratory failure with hypoxia; J44.1 Chronic obstructive pulmonary disease with (acute) exacerbation; Z68.43 Body mass index [BMI] 50.0-59.9, adult; H44.009 Unspecified purulent endophthalmitis, unspecified eye; J44.0 Chronic obstructive pulmonary disease with (acute) lower respiratory infection; Z20.828 Contact with and (suspected) exposure to other viral communicable diseases; E66.01 Morbid (severe) obesity due to excess calories; I10 Essential (primary) hypertension; G47.33 Obstructive sleep apnea (adult) (pediatric); F41.9 Anxiety disorder, unspecified; F32.9 Major depressive disorder, single episode, unspecified; I87.8 Other specified disorders of veins; Z99.81 Dependence on supplemental oxygen; Z87.891 Personal history of nicotine dependence; Z88.5 Allergy status to narcotic agent; Z79.899 Other long term (current) drug therapy; Z79.51 Long term (current) use of inhaled steroids; Z79.1 Long term (current) use of non-steroidal anti-inflammatories (NSAID)
CPT/HCPCS: 0241U; 36415; 36600; 71045; 80048; 80053; 82803; 83605; 83880; 84145; 84484; 85025; 85027; 93005; 93010; 94640; 94644; 94660; 94664; 94667; 94760; 94762; 96374; 96375; 98960; 99285-25; A9270; A9270-GY; J0456; J0696; J1650; J2060; J2930; J7030; J7050

== ENCOUNTER → 2020-09-10 | Outpatient (CLI) | payer MEDICARE, OTHER ==
[~2020-09-10] MED LIST changes: +ALBU90OI INH; +AMLO10 PO; +AZITHROMYCIN500 M1 PO; +DULO60 PO; +ERYT.5TO BOTHEYES; +FLUTICASONE PRO16 GM; +HYDCHL25 PO; +IPRAT-ALBUT 0.5-3 ML NEB; +LISI5 PO; +MOBIC15 MG PO; +REMERON30 MG PO; +SYMBICORT 160-4.6 GM INH; +TRAZ150T57 PO; +TUDORZA PRESS400 MC1 INH
== END ==
LOC: LAB 13:56 → LAB SHORT 13:56
DX: L08.9 Local infection of the skin and subcutaneous tissue, unspecified (principal); Z88.8 Allergy status to other drugs, medicaments and biological substances; Z88.5 Allergy status to narcotic agent
CPT/HCPCS: 87070; 87077; 87147; 87186; 87205

== ENCOUNTER → 2021-03-27 | Outpatient (CLI) | payer MEDICARE, OTHER | LOC: LAB SHORT 18:30 | DX: L02.212 Cutaneous abscess of back [any part, except buttock and flank] (principal); I87.2 Venous insufficiency (chronic) (peripheral); I89.0 Lymphedema, not elsewhere classified; R60.0 Localized edema | CPT/HCPCS: 87070; 87077; 87147; 87186; 87205 ==

== ENCOUNTER → 2021-04-15 | Outpatient (CLI) | payer MEDICARE, OTHER | LOC: LAB SHORT 15:10 | DX: I87.2 Venous insufficiency (chronic) (peripheral) (principal); I89.0 Lymphedema, not elsewhere classified; L08.9 Local infection of the skin and subcutaneous tissue, unspecified; L21.8 Other seborrheic dermatitis; L02.212 Cutaneous abscess of back [any part, except buttock and flank]; R60.0 Localized edema | CPT/HCPCS: 87070; 87205 ==

== ENCOUNTER 2022-01-18 15:48 | Emergency (ER) | payer MEDICARE, OTHER ==
[~2022-01-18] VITALS: Ht 154.9 cm; Wt 143.8 kg
[2022-01-18 16:43] LABS: Influenza A, PCR NEGATIVE (NEGATIVE); Influenza B, PCR NEGATIVE (NEGATIVE); Resp Syncytial Virus, PCR NEGATIVE (NEGATIVE); SARS-Cov-2 (COVID-19) PCR, MMC NEGATIVE (NEGATIVE)
[2022-01-18 17:24] LABS: BASOPHILS ABSOLUTE AUTO 0.08 K/mm3 (0.00-0.23); BASOPHILS PERCENT AUTO 1 % (0-2); EOSINOPHILS ABSOLUTE AUTO 0.63 K/mm3 (0.00-0.68); EOSINOPHILS PERCENT AUTO 7 % (0-6); Hematocrit 40.2 % (33.0-51.0); Hemoglobin 13.4 g/dL (11.5-16.0); IMMATURE GRAN ABSOLUTE AUTO 0.02 K/mm3 (0.00-0.10); IMMATURE GRAN PERCENT AUTO 0 % (0-1); LYMPHOCYTES ABSOLUTE AUTO 3.11 K/mm3 (0.84-5.20); LYMPHOCYTES PERCENT AUTO 36 % (21-46); MONOCYTES ABSOLUTE AUTO 0.71 K/mm3 (0.16-1.47); MONOCYTES PERCENT AUTO 8 % (4-13); Mean Corpuscular HGB 29.3 pg (26.0-34.0); Mean Corpuscular HGB Conc 33.3 g/dL (31.5-36.5); Mean Corpuscular Volume 88 fL (80-100); Mean Platelet Volume 10.1 fL (9.1-12.4); NEUTROPHILS ABSOLUTE AUTO 4.22 K/mm3 (1.96-9.15); NEUTROPHILS PERCENT AUTO 48 % (41-73); Platelet Count 247 K/mm3 (150-400); RDW Coefficient Variation 13.9 % (11.7-14.2); RDW Standard Deviation 45.1 fL (35.1-46.3); Red Blood Cell Count 4.57 M/mm3 (3.80-5.20); White Blood Cell Count 8.77 K/mm3 (4.00-11.30)
[2022-01-18 17:46] LABS: Albumin, Blood 3.8 g/dL (3.4-5.0); Albumin/Globulin Ratio 1.1 (0.8-1.8); Bilirubin, Total 0.8 mg/dL (0.1-1.0); Bun/Creatinine Ratio 17.2 (12.0-20.0); Calcium, Blood 9.3 mg/dL (8.5-10.1); Creatinine, Blood 0.7 mg/dL (0.40-1.00); Globulin, Blood 3.6 g/dL (2.2-4.0); Potassium, Blood 3.8 mmol/L (3.5-5.5); Total Protein, Blood 7.4 g/dL (6.4-8.2)
[2022-01-18] MEDS ORDERED: Prednisone50 MG PO (19:03)
[2022-01-18] MEDS ORDERED: AMOCLA875 PO (19:03)
[2022-01-18] MEDS ORDERED: Tessalon200 MG PO (19:03)
== END 2022-01-18 19:34 | disposition home or self-care (01) ==
LOC: ER 15:48
PROVIDERS: Physician Assistant
DX: J20.9 Acute bronchitis, unspecified (principal); J44.0 Chronic obstructive pulmonary disease with (acute) lower respiratory infection; I10 Essential (primary) hypertension; Z87.891 Personal history of nicotine dependence; Z99.81 Dependence on supplemental oxygen; Z20.822 Contact with and (suspected) exposure to COVID-19
CPT/HCPCS: 0241U; 36415; 71045; 80053; 83880; 84484; 85025; 93005; 93010; A9270; J7512

== ENCOUNTER → 2023-02-24 | Outpatient (CLI) | payer MEDICARE, OTHER ==
[~2023-02-24] MED LIST changes: +Tessalon200 MG PO
== END ==
LOC: LAB 17:14 → LAB SHORT 17:14
DX: L08.9 Local infection of the skin and subcutaneous tissue, unspecified (principal)
CPT/HCPCS: 87070; 87205

== ENCOUNTER → 2023-03-03 | Outpatient (CLI) | payer MEDICARE, OTHER | LOC: LAB 17:11 → LAB SHORT 17:11 | DX: L02.212 Cutaneous abscess of back [any part, except buttock and flank] (principal); L08.9 Local infection of the skin and subcutaneous tissue, unspecified | CPT/HCPCS: 87070; 87205 ==

== ENCOUNTER 2024-05-29 01:17 | Emergency (ER) | payer MEDICARE, OTHER ==
[~2024-05-29] VITALS: Ht 149.9 cm; Wt 120.2 kg
[2024-05-29 02:22] LABS: BASOPHILS ABSOLUTE AUTO 0.09 K/mm3 (0.00-0.23); BASOPHILS PERCENT AUTO 1 % (0-2); EOSINOPHILS ABSOLUTE AUTO 0.22 K/mm3 (0.00-0.68); EOSINOPHILS PERCENT AUTO 2 % (0-6); Hematocrit 35.7 % (33.0-51.0); IMMATURE GRAN ABSOLUTE AUTO 0.05 K/mm3 (0.00-0.10); IMMATURE GRAN PERCENT AUTO 0 % (0-1); LYMPHOCYTES ABSOLUTE AUTO 2.82 K/mm3 (0.84-5.20); LYMPHOCYTES PERCENT AUTO 23 % (21-46); MONOCYTES PERCENT AUTO 8 % (4-13); Mean Corpuscular HGB 29.9 pg (26.0-34.0); Mean Corpuscular HGB Conc 33.6 g/dL (31.5-36.5); Mean Corpuscular Volume 89 fL (80-100); NEUTROPHILS ABSOLUTE AUTO 8.34 K/mm3 (1.96-9.15); NEUTROPHILS PERCENT AUTO 67 % (41-73); Platelet Count 262 K/mm3 (150-400); RDW Coefficient Variation 13.7 % (11.7-14.2); Red Blood Cell Count 4.02 M/mm3 (3.80-5.20); White Blood Cell Count 12.52 K/mm3 (4.00-11.30)
[2024-05-29 02:25] LABS: Influenza A, PCR NEGATIVE (NEGATIVE); Influenza B, PCR NEGATIVE (NEGATIVE); Resp Syncytial Virus, PCR NEGATIVE (NEGATIVE); SARS-Cov-2 (COVID-19) PCR, MMC NEGATIVE (NEGATIVE)
[2024-05-29 02:38] LABS: Albumin, Blood 3.4 g/dL (3.4-5.0); Albumin/Globulin Ratio 0.9 (0.8-1.8); Bilirubin, Total 1.2 mg/dL (0.1-1.0); Bun/Creatinine Ratio 22.6 (12.0-20.0); Calcium, Blood 9.1 mg/dL (8.5-10.1); Creatinine, Blood 0.93 mg/dL (0.40-1.00); Globulin, Blood 3.9 g/dL (2.2-4.0); Potassium, Blood 3.7 mmol/L (3.5-5.5); Total Protein, Blood 7.3 g/dL (6.4-8.2)
[2024-05-29] MEDS ORDERED: Dexamethasone Sod Phos 10 MG/ML 1ML VIAL IV ONE (06:20)
[2024-05-29] MEDS ORDERED: Albuterol 2.5 MG/3 ML VIAL INH SCH (06:20)
[2024-05-29 06:30] VITALS: BP 148/46
[2024-05-29] MEDS ORDERED: AZIT250 PO (08:15)
[2024-05-29] MEDS ORDERED: PRED20 PO (08:15)
== END 2024-05-29 08:34 | disposition home or self-care (01) ==
LOC: ER 01:17
PROVIDERS: Emergency Medicine
DX: J44.1 Chronic obstructive pulmonary disease with (acute) exacerbation (principal); J06.9 Acute upper respiratory infection, unspecified; Z87.891 Personal history of nicotine dependence; I10 Essential (primary) hypertension; Z88.6 Allergy status to analgesic agent; Z88.5 Allergy status to narcotic agent; Z79.899 Other long term (current) drug therapy; Z79.51 Long term (current) use of inhaled steroids; Z79.2 Long term (current) use of antibiotics; Z79.52 Long term (current) use of systemic steroids
CPT/HCPCS: 0241U; 71046; 80053; 84484; 85025; 93005; 93010; 94644; 94664; 96374; 99285-25; J1100